=== PATIENT | female | born 1935 | race African-American/Black ===

== ENCOUNTER 2024-05-25 14:13 | Emergency (ER) | payer OTHER ==
[~2024-05-25] VITALS: Ht 175.3 cm; Wt 91.7 kg
[2024-05-25 17:21] LABS: Basophils # (auto) 0 10 ^3/uL (0-0.2); Basophils % (auto) 0.4 % (0.0-2.0); Eosinophils # (auto) 0.2 10 ^3/uL (0-0.8); Eosinophils % (auto) 3.7 % (0.0-7.0); Hematocrit 40.8 % (36.0-46.0); Hemoglobin 13.6 g/dL (12.2-16.2); Lymphocytes # (auto) 1.7 10 ^3/uL (0.4-5.4); Lymphocytes % (auto) 32.4 % (10.0-50.0); Mean Corpuscular Hgb Conc. 33.3 g/dL (32.0-36.0); Monocytes # (auto) 0.5 10 ^3/uL (0-1.3); Monocytes % (auto) 8.8 % (0.0-12.0); Neutrophils # (auto) 2.9 10 ^3/uL (1.6-8.6); Neutrophils % (auto) 54.7 % (37.0-80.0); Nucleated Red Blood Cells % 0.1 %; Platelet Count (auto) 224 10^3/uL (140-450); Red Blood Cells 4.69 10^6/uL (4.0-5.20); Red Cell Distribution Width 14.6 % (11.8-14.3); White Blood Cell 5.3 10^3/uL (4.4-10.8)
--- NOTE | 2024-05-25 17:24 | DVH ---
EXAM: XR Chest, 1 View CLINICAL INDICATION: R hand weakness TECHNIQUE: Frontal view of the chest. COMPARISON: None FINDINGS: LUNGS AND PLEURAL SPACES: Unremarkable. No consolidation. No pneumothorax. HEART: Unremarkable. No cardiomegaly. MEDIASTINUM: Unremarkable. Normal mediastinal contour. BONES/JOINTS: Unremarkable. No acute fracture. OTHER FINDINGS: . None. IMPRESSION: No acute cardiopulmonary process.
--- NOTE | 2024-05-25 17:26 | DVH ---
CT HEAD WITHOUT CONTRAST INDICATION: R hand weakness/tremor EXAM DATE: 05/25/2024 05:00 PM COMPARISON: None RADIATION DOSE: CTDIvol: 53.77 mGy, DLP: 967.58 mGy*cm PROCEDURE: CT scans of the head were obtained from the vertex to the skull base. Sagittal and coronal reconstructions were provided. All CT scans at this medical facility are performed using dose modulation techniques as appropriate t o a performed exam including the following: Automated exposure control was utilized; adjustment of th e MA and/or KV according to patient size; and use of iterative reconstruction technique. FINDINGS: There is sulcal and ventricular prominence. The brainshows normal morphology and jackson-whi te matter differentiation, without intracranial hemorrhage, extra-axial fluid collection, mass effect or acute large vessel infarct. The ventricles are normal in size. The basal cisterns are patent. The skull and visible facial bones are intact. The paranasal sinuses, mastoid air cells and middle ear c avities are well-aerated. The soft tissues of the scalp are unremarkable. IMPRESSION: No acute intracranial abnormality.
[2024-05-25 17:27] LABS: Alanine Aminotransferase 15 U/L (7-40); Alkaline Phosphatase 58 U/L (46-116); Anion Gap 10 (5-15); Aspartate Aminotransferase 16 U/L (13-40); BUN/Creatinine Ratio 16.2 (10.0-20.0); Blood Urea Nitrogen 16 mg/dL (9-23); Calcium 10.1 mg/dL (8.7-10.4); Carbon Dioxide 26 mmol/L (20-31); Chloride 103 mmol/L (98-107); Glucose 85 mg/dL (74-106); Sodium 139 mmol/L (136-145); Total Protein 7.2 g/dL (5.7-8.2)
[2024-05-25 17:28] LABS: Bilirubin, Total 0.5 mg/dL (0.2-1.0)
[2024-05-25 17:33] LABS: Albumin 4.9 g/dL (3.2-4.8)
--- NOTE | 2024-05-25 18:16 | ED.PDOC ---
HPI (NEURO) HPI Comments 88y F who presents to the ED for chief complaint of R upper extremity weakness. Pt states she started to have weakness in the R hand 5 days prior while crocheting described as I just can not get my hand to work." Pt states the next day, she went bowling with friends and states she did not have the heel sprayer strength to grasp or lift the bowling ball with her right hand, which is very unusual for her. Pt states the next day she began exercising her hand using a squeeze ball, and now regained the strength in her R hand, and it is now essentially back to normal. Pt now in the ED, is alert and oriented x 4 and able to answer all questions. Pt has no noted changes in gait, vision or speech. Pt now in the ED, otherwise denies headache, dizziness, chest pain, shortness of breath, nausea, vomiting, fever, cough, or chills. Pt in the ED has noted tremor to the L hand but states the tremor in the L hand is chronic. She does note an intermittent new tremor in her right hand over the past several days. Pt has noted elevated BP of 145/79 with all other vitals in normal range. Pt denies any other symptoms at this time. Chief Complaint: Upper Extremity Time Seen by MD: 18:03 Primary Care Provider: augustus Fong Notes: Medications, Allergies Information Source: Patient Mode of Arrival: Ambulatory Brought in by: self Past Medical History PAST MEDICAL HISTORY: Arthritis, High Lipids, HTN Surgical History (Other): b/l knee surgery [employer] History: Denies all [employer] Hx Family History Family History: Reviewed,noncontributory to illness Social History Smoker: Non-Smoker Alcohol: Denies ETOH Use Drugs: Denies Drug Use Lives In: Home Constitutional: denies: chills, diaphoresis, fatigue, fever, malaise, sweats, weakness, others EENTM: denies: blurred vision, double vision, ear bleeding, ear discharge, ear drainage, ear pain, ear ringing, eye pain, eye redness, hearing loss, mouth pain, mouth swelling, nasal discharge, nose bleeding, nose congestion, nose pain, photophobia, tearing, throat pain, throat swelling, voice changes, others Respiratory: denies: cough, hemoptysis, orthopnea, SOB at rest, shortness of breath, SOB with excertion, stridor, wheezing, others Cardiovascular: denies: chest pain, dizzy spells, diaphoresis, Dyspnea on exertion, edema, irregular heart beat, left arm pain, lightheadedness, palpitations, PND, syncope, others Gastrointestinal: denies: abdomen distended, abdominal pain, blood streaked bowels, constipated, diarrhea, dysphagia, difficulty swallowing, hematemesis, melena, nausea, poor appetite, poor fluid intake, rectal bleeding, rectal pain, vomiting, others Genitourinary: denies: abnormal vagina bleeding, burning, dyspareunia, dysuria, flank pain, frequency, hematuria, incontinence, pain, , vagina discharge, urgency, others Neurological: reports: right sided weakness; denies: dizziness, fainting, headache, left sided numbness, left sided weakness, numbness, paresthesia, pre- existing deficit, right sided numbness, seizure, speech problems, tingling, tremors, weakness, others Musculoskeletal: denies: back pain, gout, joint pain, joint swelling, muscle pain, muscle stiffness, neck pain, others Integumetry: denies: bruises, change in color, change in hair/nails, dryness, laceration, lesions, lumps, rash, wounds, others Allergic/Immunocompromised: denies: Difficulty Healing, Frequent Infections, Hives, Itching, others Hematologic/Lymphatic: denies: anemia, blood clots, easy bleeding, easy bruising, swollen glands, others Endocrine: denies: excessive hunger, excessive sweating, excessive thirst, excessive urination, flushing, intolerance to cold, intolerance to heat, unexplained weight gain, unexplained weight loss, others Psychiatric: denies: anxiety, bipolar disorder, depression, hopeless, panic disorder, schizophrenia, sleepless, suicidal, others All Other Systems: Reviewed and Negative Physical Exam General Appearance: No Apparent Distress HEENT: PERRL/EOMI, Other (No facial asymmetry. Moist mucous membranes.) Neck: Full Range of Motion, Normal Inspection Respiratory: Lungs Clear, No Accessory Muscle Use, No Respiratory Distress, Nor mal Breath Sounds Cardiovascular: No Edema, No JVD, Regular Rate/Rhythm Breast Exam: Deferred Gastrointestinal: Non Tender, Soft Genitalia: Deferred Pelvic: Deferred Rectal: Deferred Extremities: Normal inspection, Normal range of motion, Non-tender, No pedal edema Neurologic: Alert (Oriented x4), No Motor Deficits, Normal Affect, Normal Mood, No Sensory Deficits, Other (Ambulatory with walker. No gross focal deficit.) Cerebellar Function: NOT DONE Reflexes: NOT DONE Skin: Dry, Warm, Other (Vitiligo) Lymphatic: NOT DONE Was a procedure done? Was a procedure done?: No Differential Diagnosis (SZ) Seizure: CVA/TIA CVA: Electrolyte Imbalance, Mass Lesion General Weakness: Anemia, Dehydration, Dysrhythmia, Hypoglycemia, Hypotension, Hypovolemia Headache: Epidural Hemorrhage, Intracerebral Hemorrhage, Subarachnoid Hemorrhage, Subdural Hemorrhage X-Ray, Labs, Meds, VS Vital Signs Date Time Temp Pulse Resp B/P (MAP) Pulse Ox O2 Delivery O2 Flow Rate FiO2 05/25/24 14:24 98.4 81 16 145/79 (101) 96 Lab Test 05/25/24 18:00 05/25/24 17:56 05/25/24 16:56 05/25/24 16:48 Range/Units Urine Color Light-yellow Yellow Urine Clarity Turbid H Clear Urine pH 5.5 5.0-9.0 Urine Specific [place] 1.010 1.001-1.035 Urine Protein Negative Negative Urine Ketones Negative Negative Urine Blood Negative Negative /uL Urine Nitrite Negative Negative Urine Bilirubin Negative Negative Urine Urobilinogen Normal Negative mg/dL Urine Leukocyte Esterase 3+ Negative /uL Urine RBC 1 0 - 4 /hpf Urine Microscopic WBC 81 H 0-5 /HPF Urine Squamous Epithelial Cells Few <5 /hpf Urine Bacteria Few H None Seen /hpf Urine Glucose Normal Normal mg/dL Troponin I High Sensitivity 3 L 3 L </=34 ng/L Sodium Level 139 136-145 mmol/L Potassium Level 4.0 3.5-5.1 mmol/L Chloride Level 103 98-107 mmol/L Carbon Dioxide Level 26 20-31 mmol/L Anion Gap 10 5-15 Blood Urea Nitrogen 16 9-23 mg/dL Creatinine 0.99 0.550-1.02 mg/dL Glomerular Filtration Rate Calc 56 >90 mL/min BUN/Creatinine Ratio 16.2 10.0-20.0 Serum Glucose 85 74-106 mg/dL Calcium Level 10.1 8.7-10.4 mg/dL Total Bilirubin 0.5 0.2-1.0 mg/dL Aspartate Amino Transferase (AST) 16 13-40 U/L Alanine Aminotransferase (ALT) 15 7-40 U/L Alkaline Phosphatase 58 46-116 U/L B-Type Natriuretic Peptide 87.81 0-100 pg/mL Total Protein 7.2 5.7-8.2 g/dL Albumin 4.9 H 3.2-4.8 g/dL White Blood Count 5.3 4.4-10.8 10^3/uL Red Blood Count 4.69 4.0-5.20 10^6/uL Hemoglobin 13.6 12.2-16.2 g/dL Hematocrit 40.8 36.0-46.0 % Mean Corpuscular Volume 87.0 80.0-100.0 fL Mean Corpuscular Hemoglobin 29.0 28.0-32.0 pg Mean Corpuscular Hemoglobin Concent 33.3 32.0-36.0 g/dL Red Cell Distribution Width 14.6 H 11.8-14.3 % Platelet Count 224 140-450 10^3/uL Mean Platelet Volume 7.2 6.9-10.8 fL Neutrophils (%) (Auto) 54.7 37.0-80.0 % Lymphocytes (%) (Auto) 32.4 10.0-50.0 % Monocytes (%) (Auto) 8.8 0.0-12.0 % Eosinophils (%) (Auto) 3.7 0.0-7.0 % Basophils (%) (Auto) 0.4 0.0-2.0 % Neutrophils # (Auto) 2.9 1.6-8.6 10 ^3/uL Lymphocytes # (Auto) 1.7 0.4-5.4 10 ^3/uL Monocytes # (Auto) 0.5 0-1.3 10 ^3/uL Eosinophils # (Auto) 0.2 0-0.8 10 ^3/uL Basophils # (Auto) 0 0-0.2 10 ^3/uL Nucleated Red Blood Cells 0.1 % [place] [id number] Ph: [phone] DIAGNOSTIC IMAGING Diagnostic Imaging Report : [id number] Signed PATIENT: ANNAMARIA BRASHER DAVIDCCT: [id number] UNIT: [id number] : 1935 LOC: ER ROOM / BED: / AGE / SEX: 88 / F ADM STATUS: REG ER SERVICE 42 ORDERING PHYSICIAN: LAINEY ROMAN MD PROCEDURE(s): HWOCT - HEAD WITHOUT CONTRAST REASON: R hand weakness/tremor ORDER NUMBER(s): [id number], ACCESSION NUMBER(s): [id number] CT HEAD WITHOUT CONTRAST INDICATION: R hand weakness/tremor EXAM DATE: 05/25/2024 05:00 PM COMPARISON: None RADIATION DOSE: CTDIvol: 53.77 mGy, DLP: 967.58 mGy*cm PROCEDURE: CT scans of the head were obtained from the vertex to the skull base. Sagittal and coronal reconstructions were provided. All CT scans at this medical facility are performed using dose modulation techniques as appropriate to a performed exam including the following: Automated exposure control was utilized; adjustment of the MA and/or KV according to patient size; and use of iterative reconstruction technique. FINDINGS: There is sulcal and ventricular prominence. The brainshows normal morphology and jackson-white matter differentiation, without intracranial hemorrhage, extra-axial fluid collection, mass effect or acute large vessel infarct. The ventricles are normal in size. The basal cisterns are patent. The skull and visible facial bones are intact. The paranasal sinuses, mastoid air cells and middle ear cavities are well-aerated. The soft tissues of the scalp are unremarkable. IMPRESSION: No acute intracranial abnormality. ATED BY: MIKEY MCGARYR MD DICTATED DATE/TIME: 05/25/241722 SIGNED BY: MIKEY MCGARRY MD SIGNED DATE/TIME: 05/25/241722 CC: [place] [id number] Ph: [phone] DIAGNOSTIC IMAGING Diagnostic Imaging Report : [id number] Signed PATIENT: ANNAMARIA BRASHER MAEACCT: [id number] UNIT: [id number] : 1935 LOC: ER ROOM / BED: / AGE / SEX: 88 / F ADM STATUS: REG ER SERVICE 42 ORDERING PHYSICIAN: LAINEY ROMAN MD PROCEDURE(s): CXRP - CHEST PORTABLE REASON: R hand weakness ORDER NUMBER(s): [id number], ACCESSION NUMBER(s): [id number] EXAM: XR Chest, 1 View CLINICAL INDICATION: R hand weakness TECHNIQUE: Frontal view of the chest. COMPARISON: None FINDINGS: LUNGS AND PLEURAL SPACES: Unremarkable. No consolidation. No pneumothorax. HEART: Unremarkable. No cardiomegaly. MEDIASTINUM: Unremarkable. Normal mediastinal contour. BONES/JOINTS: Unremarkable. No acute fracture. OTHER FINDINGS: . None. IMPRESSION: No acute cardiopulmonary process. ATED BY: CARY RICE MD DICTATED DATE/TIME: 05/25/241720 SIGNED BY: CARY RICE MD SIGNED DATE/TIME: 05/25/241720 CC: X-Ray, Labs, Meds, VS Comment 88 yo F with h/o htn, hyperlipidemia, arthritis, presenting with transient right hand weakness Vitals remarkable for BP 145/79 Exam unremarkable. No gross focal neurologic deficit Rhythm strip independently interpreted by me: Sinus rhythm, rate 81, no ectopy. CT head unremarkable Chest x-ray no acute disease CBC, CMP, BNP and 2 serial troponins unremarkable for any abnormality of acute significance. UA abnormal consistent with UTI. Patient treated with the following in the ED: Aspirin 325 mg p.o., Rocephin 1 g IV, Tylenol 1 g p.o. for chronic right hip pain On re-evaluation, patient has no new focal neurologic changes. She has no focal neurologic deficit on exam. Vitals were stable. I discussed the case with Dr. Mcdaniel at [facility], who will arrange for the patient to have an urgent follow-up with her primary physician for brain MRI and Neurology evaluation. Authorization [id number]. Rx Keflex Time of 1ST Reevaluation: 18:35 Reevaluation 1ST: Unchanged Time of 2ND Reevaluation: 20:31 Reevaluation 2ND: Unchanged Patient Education/Counseling: Diagnosis, Treatment Family Education/Counseling: No Family Present Additional Information -Reviewed patient's previous visit(s): - The following tests were ordered, and results were reviewed by me:tropx2, cmp, bnp, chest x-ray, ua, bmp, ekg x1, ct head w/o contrast, cbc - I reviewed and agreed with the following test results read by other provider: radiologist - I discussed treatments and results with medical personnel and: patient Departure 1 Departure Time of Disposition: 20:31 Impression: Primary Impression: TIA (transient ischemic attack) Additional Impression: UTI (urinary tract infection) Qualified Codes: N39.0 - Urinary tract infection, site not specified Disposition: 01 HOME / SELF CARE / HOMELESS Condition: Stable Additional Instructions: Your blood tests were unremarkable. Your urine test showed you have a urinary tract infection. I have prescribed antibiotics. Your head CT was unremarkable. You do not need to be admitted to the hospital. I have contacted [facility], and they will arrange for you to follow-up urgently with your primary doctor for brain MRI and Neurology evaluation. Return to ER for recurrent symptoms. e-Prescriptions Cephalexin Monohydrate (Cephalexin) 500 Mg Cap 1 CAP PO QID for 10 Days, #40 CAP Prov: LAINEY ROMAN MD 05/25/24 Discharged With: Relative Critical Care Note Critical Care Time?: No Stability Stability form required: No Heart Score Heart Score: Heart Score Response (Comments) Value History N/A 0 EKG N/A 0 Age N/A 0 Risk Factors N/A 0 Troponin N/A 0 Total 0 I personally scribed for LAINEY ROMAN MD (BOBBI) on 05/25/24 at 18:16. Electronically submitted by Anitha Ram ([employer] I personally scribed for LAINEY ROMAN MD (BOBBI) on 05/25/24 at 18:19. Electronically submitted by Anitha Ram ([employer] LAINEY ROMAN MD May 25, 2024 18:16
[2024-05-25 18:42] LABS: Urine Bacteria FEW /hpf (None Seen); Urine Blood Negative /uL (Negative); Urine Clarity Turbid (Clear); Urine Color Light-Yellow (Yellow); Urine Protein, UAD Negative (Negative); Urine Squamous Epithelial Cell FEW /hpf (<5); Urine Urobilinogen Normal (Negative); Urine WBC 81 /HPF (0-5); Urine pH 5.5 (5.0-9.0)
[2024-05-25 19:30] VITALS: PULSE 72; RESP 23; O2SAT 99
[2024-05-25] MEDS ORDERED: CEPH500C PO (20:56)
[2024-05-25] MEDS: ASPirin 325 MG TAB PO ONE (21:08)
[2024-05-25] MEDS: ACETAMINOPHEN 500 MG TAB or CAP PO ONE (21:08)
[2024-05-25] MEDS: cefTRIAXone 1GM/50ML D5W 50 ML IV ONE (21:13)
[2024-05-25 22:00] VITALS: BP 133/58; PULSE 73; RESP 22; O2SAT 95
[2024-05-25 22:08] VITALS: TEMP 98.3
== END 2024-05-25 22:20 | disposition home or self-care (01) ==
LOC: ER 14:13
DX: G45.9 Transient cerebral ischemic attack, unspecified (principal); N39.0 Urinary tract infection, site not specified; I10 Essential (primary) hypertension; E78.5 Hyperlipidemia, unspecified; Z98.890 Other specified postprocedural states
CPT/HCPCS: 36415; 70450; 71045; 80053; 81001; 83880; 84484; 85025; 96365; 99285; J0696